=== PATIENT | male | born 1945 | race Caucasian/White ===

== ENCOUNTER → 2021-07-26 09:07 | Outpatient (CLI) | payer MEDICARE, SELFPAY ==
[2021-07-26 10:35] LABS: Alanine Aminotransferase 22 IU/L (<50); Albumin 4.1 g/dL (3.5-5.0); Albumin Globulin Ratio 1.5 (1.0-2.8); Alkaline Phosphatase 44 U/L (38-126); Aspartate Aminotransferase 26 IU/L (17-59); BUN Creatinine Ratio 24.2 (6-22); Bilirubin Total 0.9 mg/dL (0.2-1.3); Blood Urea Nitrogen 22 mg/dL (9-20); Calcium 9.6 mg/dL (8.4-10.2); Carbon Dioxide 25 mmol/L (22-32); Chloride 104 mmol/L (98-107); Cholesterol 221 mg/dL (140-199); Estimated Glomerular Filt Rate > 60.0 mL/min (>60); Globulin 2.8 g/dL (1.7-4.1); Glucose 108 mg/dL (80-110); HDL Cholesterol 40 mg/dL (40-60); LDL Cholesterol Calculated 158 mg/dL (<100); Sodium 137 mmol/L (137-145); Total Protein 6.9 g/dL (6.3-8.2); Triglycerides 115 mg/dL (35-150)
[2021-07-26 10:37] LABS: HEMOLYSIS 52 (0-50); Potassium 5.1 mmol/L (3.4-5.1)
[2021-07-26 11:14] LABS: Thyroid Stimulating Hormone 1.87 uIU/mL (0.47-4.68)
[2021-07-26 14:58] LABS: Add Manual Diff / Slide Review NO; Basophils Absolute Auto 0 /uL (0-100); Basophils Percent Auto 0.7 % (0-2); Eosinophils Absolute Auto 100 /uL (0-450); Eosinophils Percent Auto 1.3 % (2-4); Hematocrit 43.6 % (41-53); Hemoglobin 14.5 g/dL (13.5-17.5); Lymphocytes Absolute Auto 1900 /uL (1100-4500); Lymphocytes Percent Auto 26.4 % (25-40); Mean Corpuscular HGB Conc 33.4 % (30-36); Mean Corpuscular Hemoglobin 29.5 PG (26-34); Mean Corpuscular Volume 88.3 fL (80-100); Monocytes Absolute Auto 1300 /uL (0-900); Monocytes Percent Auto 18.4 % (3-14); Neutrophils Absolute Auto 3800 /uL (1500-7000); Neutrophils Percent Auto 53.2 % (50-75); Platelet Count 217 X10^3/uL (150-400); Red Blood Cell Count 4.93 X10^6/uL (4.5-5.9); Red Cell Distribution Width 13.5 % (11.6-14.8); White Blood Cell Count 7.2 X10^3/uL (4.5-11.0)
== END ==
PROVIDERS: PCP Family Medicine; Referring Provider Family Medicine; Visit Provider Family Medicine
DX: Z00.00 Encounter for general adult medical examination without abnormal findings (principal); E78.5 Hyperlipidemia, unspecified; Z13.29 Encounter for screening for other suspected endocrine disorder
CPT/HCPCS: 36415; 80053; 80061; 84443; 85025

== ENCOUNTER 2024-05-23 10:05 | Emergency (ER) | payer MEDICARE, SELFPAY ==
[2024-05-23 10:10] VITALS: BP 135/82; PULSE 90; RESP 14; TEMP 36.7; O2SAT 99; BMI 33.9
--- NOTE | 2024-05-23 10:24 | ED_ITS ---
HPI - Skin/Abscess/Foreign Bdy General Chief complaint: Skin/Abscess/Foreign Body Stated complaint: Eyes Swelling Shut, Redness on Face Time Seen by Provider: 05/23/24 10:23 Source: patient Mode of arrival: Ambulatory Limitations: no limitations History of Present Illness HPI narrative: 79-year-old male former smoker who presents with complaint of redness of his face on the right side extending from behind the ear and towards about the midline. Patient states did not really notice any skin changes until today. He states the back of his ear in the skin around that area has been irritated for the last several days. He does have some small old abrasions where he is scratched the skin over that area. Patient states he just feels unwell. No fevers or chills. He states the areas got a little bit of discomfort but states it has not really painful. No itching. No drainage. The ear itself is also swollen but states no real pain on the inside. He has not had any pain or discomfort of the eyeball itself. No vision change. No chest pain or shortness of breath, no nausea or vomiting no other GI or urinary symptoms. Has not had issues with skin infections or rashes in the past. States no daily medications, no prior surgeries. Does follow regularly with primary care. Former smoker, does drink alcohol daily, no recreational drugs. Does note that he went camping recently but is unaware of any exposure states he has never had issues with poison gustavo or similar problems. No exposure to prior or trauma. Related Data Previous Rx's Medication Instructions Recorded clindamycin HCl 300 mg capsule 300 mg PO QID #40 caps 05/23/24 (Cleocin HCl) Allergies Allergy/AdvReac Type Severity Reaction Status Date / Time No Known Drug Allergies Allergy Verified 01/28/24 08:25 Review of Systems Review of Systems ROS Unobtainable: All systems reviewed & are unremarkable except as noted in HPI and below Patient History Medical History Mixed hyperlipidemia Social History details: (Pat), 2 sons, retired refinery Smoking Status: Former smoker Smoking Status: Former smoker alcohol intake frequency: 0-2 drinks per day Substance Use Type: does not use Exam Narrative Exam Narrative: GEN: Well-nourished male in mild distress, alert and oriented x 3, patient appears to be in mild distress. Nontoxic. HEENT: Atraumatic, pupils are equal round reactive to light, extraocular movements are intact, nares are clear, TMs are clear with no fluid, there is no conjunctival pallor. Throat is clear without any exudates, erythema, tonsillar enlargement or uvular deviation, patient has erythema extending about 2 cm behind the ear running over the parietal scalp forehead chest past the midline down the right lateral aspect of his nose lip and cheek. There is some swelling of the upper eyelid as well. The ear itself has some mild swelling. The area is nontender to touch in his slightly warm. There was no drainage there is no vesicles there is no blisters or skin breakdown. There are several small areas of excoriation but patient and note has been longstanding on the posterior parietal scalp just upon the edge of the area of erythema. Does not extend down the neck or to the chest. HEART: Regular rate and rhythm without murmur, clicks, rubs. LUNGS:Lungs clear to auscultation, no wheezes, rales, crackles, chest moves symmetrically ABD:bowel sounds normal, soft, non-tender, no guarding, rebound, rigidity, no masses noted, no hepatosplenomegaly MSCL: Non-tender, no muscle atrophy, muscles strength 5/5 upper and lower extremities, full range of motion, normal gait NEURO:CN 2-12 intact, sensation normal. . Initial Vital Signs Initial Vital Signs: Vital Signs Temperature 98.1 F 05/23/24 10:10 Pulse Rate 90 05/23/24 10:10 Respiratory Rate 14 05/23/24 10:10 Blood Pressure 135/82 05/23/24 10:10 Pulse Oximetry 99 05/23/24 10:10 Oxygen Delivery Method Room Air 05/23/24 10:10 Course Orders Ordered: ED Orders 05/23/24 10:32 Complete Blood Count AUTO DIFF Stat Comprehensive Metabolic Panel Stat Lactate (Lactic Acid) Stat Lipase Stat PTT Partial Thromboplastin Kevin Stat Procalcitonin Stat Prothrombin Time INR Stat 05/23/24 10:40 Blood Culture Stat Discontinued Medications Sodium Chloride (Normal Saline 0.9%) 1,000 mls @ 1,000 mls/hr IV BOLUS ONE Stop: 05/23/24 11:19 Last Infusion: 05/23/24 11:44 Dose: Infused Documented By: Admin: 05/23/24 10:51 Dose: 1,000 mls/hr Documented By: SHUKRI Clindamycin Phosphate (Cleocin) 900 mg in 50 mls @ 50 mls/hr IV NOW ONE Stop: 05/23/24 11:22 Last Infusion: 05/23/24 11:41 Dose: Infused Documented By: Admin: 05/23/24 10:46 Dose: 50 mls/hr Documented By: SHUKRI Ondansetron HCl (Ondansetron 4 Mg/2 Ml Inj) 4 mg IV NOW PRN PRN Reason: Nausea And Vomiting Ondansetron HCl (Ondansetron 4 Mg Odt) 4 mg SL NOW PRN PRN Reason: Nausea And Vomiting Vital Signs Vital signs: Vital Signs - 8 hr 05/23/24 10:10 05/23/24 10:50 05/23/24 10:50 Temperature 98.1 F Pulse Rate 90 88 Respiratory Rate 14 Blood Pressure 135/82 175/99 H Pulse Oximetry 99 98 Oxygen Delivery Method Room Air 05/23/24 11:00 05/23/24 11:00 05/23/24 11:30 Temperature Pulse Rate 89 Respiratory Rate Blood Pressure 157/84 H 145/77 H Pulse Oximetry 98 Oxygen Delivery Method 05/23/24 11:30 Temperature Pulse Rate 84 Respiratory Rate Blood Pressure Pulse Oximetry 96 Oxygen Delivery Method MDM - Skin/Abscess/Foreign Bdy Lab Data 05/23/24 10:32 05/23/24 10:32 Labs: Lab Results 05/23/24 Range/Units 10:32 WBC 14.4 H (4.5-11.0) X10^3/uL RBC 4.92 (4.5-5.9) X10^6/uL Hgb 14.8 (13.5-17.5) g/dL Hct 44.4 (41-53) % MCV 90.3 (80-100) fL MCH 30.2 (26-34) PG MCHC 33.5 (30-36) % RDW 14.0 (11.6-14.8) % Plt Count 198 (150-400) X10^3/uL Neut % (Auto) 71.7 (50-75) % Lymph % (Auto) 10.4 L (25-40) % [place] % (Auto) 17.5 H (3-14) % Eos % (Auto) 0.1 L (2-4) % Baso % (Auto) 0.3 (0-2) % Neut # (Auto) 57855 H (5016-5480) /uL Lymph # (Auto) 1500 (4319-4458) /uL [place] # (Auto) 2500 H (0-900) /uL Eos # (Auto) 0 (0-450) /uL Baso # (Auto) 0 (0-100) /uL PT 12.9 H (9.4-12.5) SECONDS INR 1.1 (0.9-1.3) APTT 29 (25.1-36.5) SECONDS Sodium 130 L (137-145) mmol/L Potassium 3.8 (3.4-5.1) mmol/L Chloride 98 (98-107) mmol/L Carbon Dioxide 23 (22-32) mmol/L BUN 22 H (9-20) mg/dL Creatinine 1.01 (0.66-1.25) mg/dL Estimated GFR > 60 (>60) mL/min BUN/Creatinine Ratio 21.8 (6-22) Glucose 107 (80-110) mg/dL Lactate 1.5 (0.7-2.1) mmol/L Calcium 9.0 (8.4-10.2) mg/dL Total Bilirubin 1.7 H (0.2-1.3) mg/dL AST 29 (17-59) IU/L ALT 20 (<50) IU/L Alkaline Phosphatase 49 (38-126) U/L Total Protein 7.8 (6.3-8.2) g/dL Albumin 4.2 (3.5-5.0) g/dL Globulin 3.6 (1.7-4.1) g/dL Albumin/Globulin Ratio 1.2 (1.0-2.8) Lipase 48 (23-300) U/L Procalcitonin 0.115 (<0.5) ng/mL MDM Narrative Medical decision making narrative: 79-year-old male with what appears to be a cellulitis likely starting of the posterior parietal scalp and extending towards the face. It is on the right side but does extend beyond the midline on the forehead. There was no vesicles it has a large erythematous slightly raised wheal that is slightly warm and seems most consistent with cellulitis does not appear to be shingles. Patient has been camping recently possibility of exposure to poison gustavo but he has never had similar symptoms and looks to be more cellulitic than contact dermatitis based on the pattern. Patient states he has not had issues with skin infections in the past he denies any medical problems does regularly with primary care. No known drug allergies. Patient has a leukocytosis 14.4 hemoglobin of 14.8 hematocrit of 44 platelets are 198 predominance of monocytes. INR 1.1. Sodium slightly low at 130 prior was 137 and 2020. Electrolytes are otherwise appropriate BUN 22 with a creatinine of 1.01, glucose is 107 lactate 1.5, bilirubin is 1.7 isolated with normal LFTs otherwise. Priors were not elevated procalcitonin 0.115. Culture was not obtained as there was no drainage. Patient has what appears to be a cellulitis started on oral antibiotics with strict return precautions. Patient had a heart rate of 90 initially but otherwise no signs of sepsis. Patient overall appears hemodynamically stable and appropriate for discharge home but with strict return precautions. Discussed with patient and family reasons to return to have a low threshold to return to the department. Discharge Plan Departure Patient Disposition: Home Clinical Impression: Cellulitis of face Instructions: DI for Cellulitis -- Adult Activity Restrictions/Additional Instructions: Your bilirubin or liver enzyme is elevated at 1.7, follow up with your physician to make sure this does not persistently elevated. You appear to have an infection of the skin of your face, take oral antibiotics until completed. You should expect improvement in 24-48 hours after starting antibiotics. Prescription sent to [facility] in [place]. Please return for fevers, increasing redness, swelling, pain, any involvement of the eyeball itself, chest pain or shortness of breath, nausea or vomiting, any swelling of the neck or airway, new rash or skin changes or other new or concerning changes. Prescriptions: New clindamycin HCl [Cleocin HCl] 300 mg capsule 300 mg PO QID Qty: 40 0RF Referrals: Kris Babcock MD [Primary Care Provider] - Stand Alone Forms: Patient Portal/API
[2024-05-23 10:41] LABS: Add Manual Diff / Slide Review NO; Basophils Absolute Auto 0 /uL (0-100); Basophils Percent Auto 0.3 % (0-2); Eosinophils Absolute Auto 0 /uL (0-450); Eosinophils Percent Auto 0.1 % (2-4); Hematocrit 44.4 % (41-53); Hemoglobin 14.8 g/dL (13.5-17.5); Lymphocytes Absolute Auto 1500 /uL (1100-4500); Lymphocytes Percent Auto 10.4 % (25-40); Mean Corpuscular HGB Conc 33.5 % (30-36); Mean Corpuscular Hemoglobin 30.2 PG (26-34); Mean Corpuscular Volume 90.3 fL (80-100); Monocytes Absolute Auto 2500 /uL (0-900); Monocytes Percent Auto 17.5 % (3-14); Neutrophils Absolute Auto 10300 /uL (1500-7000); Neutrophils Percent Auto 71.7 % (50-75); Platelet Count 198 X10^3/uL (150-400); Red Blood Cell Count 4.92 X10^6/uL (4.5-5.9); White Blood Cell Count 14.4 X10^3/uL (4.5-11.0)
[2024-05-23] MEDS: CLINDAMYCIN 900 MG/50 ML PIGGYBACK 50 MG IV (10:46)
[2024-05-23 10:50] VITALS: BP 175/99; PULSE 88; O2SAT 98
[2024-05-23 10:50] LABS: INR 1.1 (0.9-1.3); Prothrombin Time 12.9 SECONDS (9.4-12.5)
[2024-05-23] MEDS: SODIUM CHLORIDE 0.9% 1,000 ML 1000 ML IV (10:51)
[2024-05-23 10:52] LABS: PTT Partial Thromboplastin Tim 29 SECONDS (25.1-36.5)
[2024-05-23 10:53] LABS: Alanine Aminotransferase 20 IU/L (<50); Albumin 4.2 g/dL (3.5-5.0); Albumin Globulin Ratio 1.2 (1.0-2.8); Alkaline Phosphatase 49 U/L (38-126); Aspartate Aminotransferase 29 IU/L (17-59); BUN Creatinine Ratio 21.8 (6-22); Bilirubin Total 1.7 mg/dL (0.2-1.3); Blood Urea Nitrogen 22 mg/dL (9-20); Carbon Dioxide 23 mmol/L (22-32); Chloride 98 mmol/L (98-107); Estimated Glomerular Filt Rate > 60 mL/min (>60); Globulin 3.6 g/dL (1.7-4.1); Glucose 107 mg/dL (80-110); Lactate (Lactic Acid) 1.5 mmol/L (0.7-2.1); Lipase 48 U/L (23-300); Potassium 3.8 mmol/L (3.4-5.1); Sodium 130 mmol/L (137-145); Total Protein 7.8 g/dL (6.3-8.2)
[2024-05-23 10:55] LABS: HEMOLYSIS 106 (0-50)
[2024-05-23 11:00] VITALS: BP 157/84; PULSE 89; O2SAT 98
[2024-05-23 11:09] LABS: Procalcitonin 0.115 ng/mL (<0.5)
[2024-05-23 11:30] VITALS: BP 145/77; PULSE 84; O2SAT 96
== END 2024-05-23 11:46 | disposition home or self-care (01) ==
PROVIDERS: Emergency Provider Emergency Medicine; PCP Internal Medicine
DX: L03.211 Cellulitis of face (principal)
CPT/HCPCS: 36415; 80053; 83605; 83690; 84145; 85025; 85610; 85730; 87040; 96365; 99284